=== PATIENT | female | born 1995 | race Caucasian/White ===

== ENCOUNTER 2020-11-10 10:36 | Outpatient (REF) | payer OTHER, SELFPAY | END 2020-11-10 10:37 | disposition home or self-care (01) | LOC: HO.WFDLDS 10:36 | PROVIDERS: Visit Provider Internal Medicine | DX: Z20.822 Contact with and (suspected) exposure to COVID-19 (principal) | CPT/HCPCS: 36415; C9803; U0003; U0005 ==

== ENCOUNTER 2021-07-13 19:39 | Emergency (ER) | payer OTHER, SELFPAY ==
[2021-07-13 21:21] VITALS: BP 122/69; PULSE 79; RESP 16; TEMP 36.6; O2SAT 100; BMI 23.1
== END 2021-07-13 23:34 | disposition left against medical advice (07) ==
PROVIDERS: Emergency Provider Emergency Medicine
DX: Z04.1 Encounter for examination and observation following transport accident (principal)
CPT/HCPCS: 99281; 99282